=== PATIENT | female | born 1945 | race Caucasian/White ===

== ENCOUNTER 2017-02-01 09:28 | Observation (INO) | payer OTHER, MEDICARE ==
--- NOTE | 2017-02-01 09:01 | PDHPUP ---
History & Physical Update H&P update statement: This history and physical update is based on an assessment of the patient which was completed after admission or registration (within 24 hours), but prior to the surgery/procedure. H&P update: H&P reviewed & patient examined, no change in patient's condition since H&P completed
[2017-02-01] MEDS ORDERED: LIDOCAINE 1% 2 ML INJ ID PRN (10:09)
[2017-02-01] MEDS ORDERED: LR 1,000 ML IV ONE (10:09)
[2017-02-01] MEDS ORDERED: BUPIVACAINE/EPI 0.5% 30 ML SDV ONE (11:11)
[2017-02-01] MEDS ORDERED: MIDAZOLAM 2 MG/2 ML VIAL ONE (11:14)
--- NOTE | 2017-02-01 11:21 | PDANEPAE ---
ANE History of Present Illness Kandi fundoplication ANE Past Medical History - Cardiovascular History Hx Hypertension: Yes Hx Arrhythmias: No Hx Chest Pain: No Hx Coronary Artery / Peripheral Vascular Disease: No Hx CHF / Valvular Disease: No Hx Palpitations: No - Pulmonary History Hx COPD: No Hx Asthma/Reactive Airway Disease: No Hx Recent Upper Respiratory Infection: No Hx Oxygen in Use at Home: No Hx Sleep Apnea: No Sleep Apnea Screening Result - Last Documented: Negative - Neurologic History Hx Cerebrovascular Accident: No Hx Seizures: No Hx Dementia: No - Endocrine History Hx Diabetes: No - Renal History Hx Renal Disorders: No - Liver History Hx Hepatic Disorders: No - Neurological & Psychiatric Hx Hx Neurological and Psychiatric Disorders: No - Cancer History Hx Cancer: No - Congenital Disorder History Hx Congenital Disorders: No - GI History GERD: moderate Hx Gastrointestinal Disorders: No Gastrointestinal History Comment: ACID REFLEX "WITH THIS HIATAL HERNIA" - Chronic Pain History Chronic Pain: No - Surgical History Prior Surgeries: R KNEE SURGERY 2011. VAGINAL PROLAPSE 2009 RX FROM VAGINAL PROLAPSE IN 2007. MENINGIOMA TUMOR 2005. PARTIAL HYSTERECTOMY 1977. TONISLECTOMY 1948 ANE Review of Systems - Exercise capacity METS (RN): 4 METS ANE Patient History - Allergies Allergies/Adverse Reactions: No Known Allergies Allergy (Unverified 01/24/17 17:07) - Home Medications Home Medications: Aspirin [Aspirin 325 mg (*)] 325 mg PO DAILY 01/24/17 [Last Taken 01/30/17] Atorvastatin Calcium [Lipitor 20 mg (*)] 20 mg PO DAILY 01/24/17 [Last Taken ] Levothyroxine [Synthroid 100 mcg (*)] 100 mcg PO DAILY06 01/24/17 [Last Taken ] Liothyronine Sodium [Cytomel 5 mcg (*)] 5 mcg PO DAILY 01/24/17 [Last Taken Unknown] Losartan/Hydrochlorothiazide [Losartan-Hctz 100-25 Mg Tab] 1 each PO DAILY 01/24 [Last Taken 02/01/17 07:30] [place]-3 Fatty Acids [Fish Oil 1000 mg (*)] 1,000 mg PO DAILY 01/24/17 [Last Taken 01/31/17] Omeprazole [Prilosec 20 mg] 20 mg PO BID 01/24/17 [Last Taken 02/01/17 07:30] - NPO status NPO Since - Liquids (Date): 02/01/17 NPO Since - Liquids (Time): 07:30 NPO Since - Solids (Date): 01/31/17 NPO Since - Solids (Time): 17:45 - Smoking Hx Smoking Status: Never smoked - Family Anes Hx Family Hx Anesthesia Complications: N/A ANE Labs/Vital Signs - Vital Signs Blood Pressure: 147/84 Heart Rate: 76 Respiratory Rate: 16 O2 Sat (%): 97 Height: 167.64 cm Weight: 83.915 kg ANE Physical Exam - Airway Neck exam: FROM Mallampati Score: Class 2 Mouth exam: normal dental/mouth exam - Pulmonary Pulmonary: no respiratory distress, no rales or rhonchi - Cardiovascular Cardiovascular: regular rate and rhythym, no murmur, rub, or gallop - ASA Status ASA Status: II ANE Anesthesia Plan Anesthesia Plan: general endotracheal anesthesia
[2017-02-01] MEDS ORDERED: MIDAZOLAM 2 MG/2 ML VIAL IVP ONE (11:22)
[2017-02-01 11:28] LABS: CALCIUM 10.9 mg/dL (8.5-10.4); CREATININE 1.1 mg/dL (0.6-1.0)
[2017-02-01 11:40] LABS: PTH INTACT NO MINERALS 140.8 pg/ml (10.8-79.4)
[2017-02-01] MEDS ORDERED: PROPOFOL/EMULSION 500 MG/50 ML BOTTLE IV ONE (12:02)
[2017-02-01] MEDS ORDERED: fentaNYL 100 MCG/2 ML INJ ONE ×3 (12:02→14:46)
[2017-02-01] MEDS ORDERED: LIDOCAINE 2% 5 ML SDV ONE (12:22)
[2017-02-01] MEDS ORDERED: ROCURONIUM 50 MG/5 ML VIAL ONE (12:22)
[2017-02-01] MEDS ORDERED: GLYCOPYRROLATE 0.2 MG/1 ML VIAL ONE (13:02)
[2017-02-01] MEDS ORDERED: ONDANSETRON 4 MG/2 ML VIAL ONE ×2 (13:03→13:13)
[2017-02-01] MEDS ORDERED: DEXAMETHASONE 4 MG/ML VIAL ONE (13:03)
[2017-02-01] MEDS ORDERED: METOPROLOL TARTRATE 5 MG/5 ML INJ ONE (13:17)
[2017-02-01] MEDS ORDERED: HYDROmorphONE/DILAUDID 2 MG/ML INJ ONE (13:55)
[2017-02-01] MEDS ORDERED: SUGAMMADEX SODIUM 200 MG/2 ML VIAL IVP ONE (14:02)
[2017-02-01] MEDS ORDERED: KETOROLAC 30 MG/1 ML SDV ONE (14:13)
[2017-02-01] MEDS ORDERED: HYDROmorphONE/DILAUDID 1 MG/ML SYR IVP PRN ×2 (14:23→15:00)
[2017-02-01] MEDS ORDERED: NALOXONE HCL 0.4 MG/ML INJ IVP PRN (14:23)
[2017-02-01] MEDS ORDERED: LABETALOL HCL 50 MG/10 ML SYR IVP PRN (14:23)
[2017-02-01] MEDS ORDERED: ONDANSETRON 4 MG/2 ML VIAL IVP PRN ×2 (14:23→15:00)
[2017-02-01] MEDS: fentaNYL 100 MCG/2 ML INJ IVP PRN ×2 (14:47→14:54)
[2017-02-01] MEDS ORDERED: ZOLPIDEM TARTRATE 5 MG TAB PO PRN (15:00)
--- NOTE | 2017-02-01 15:50 | POSTOPPROG ---
Post Op Note Date of Operation: 02/01/17 Surgeon: Samson Newman Choir Teacher: Sugey Ramirez Anesthesiologist: Perri Wright Anesthesia: GET(General Endotracheal) Pre-op Diagnosis: Paraesophaeal Hernia Post-op Diagnosis: Same Procedure: Lap PEH Findings: Normal GEJ - large hernia sac with incarcerated stomach Inf/Abcess present in the surg proc area at time of surgery?: No EBL: Minimal Complications: no immediate
[2017-02-01] MEDS: ENOXAPARIN 40 MG/0.4 ML SYR SC SCH (16:06)
[2017-02-01] MEDS: HYDROCODONE/APAP 5/325 TAB PO PRN ×2 (16:06→23:40)
[2017-02-01] MEDS: KETOROLAC 15 MG/1 ML SDV IVP SCH ×2 (18:17→23:40)
[2017-02-01] MEDS: METOCLOPRAMIDE 10 MG/2 ML VIAL IVP SCH ×2 (18:17→23:40)
--- NOTE | 2017-02-01 18:20 | SOAPPROG ---
SOAP Progress Note Assessment/Plan: Assessment: no postop complaints. min pain. no cp or sob. doing well. brenton clears - adv to full liquids. restart eliquis tomorrow. lovenox given today. ambulate. anticipate dc in am. outpt workup for hyperparathyroidism to be entertained. Plan: 02/01/17 18:18 Objective: Vital Signs Temp Pulse Resp BP Pulse Ox 36.8 C 70 14 126/75 H 97 02/01/17 18:07 02/01/17 18:07 02/01/17 18:07 02/01/17 18:07 02/01/17 18:07 01/31/17 02/01/17 02/02/17 05:59 05:59 05:59 Intake Total 225 Balance 225 ICD10 Worksheet Patient Problems: Problems Problem Status Onset Paraesophageal hernia Acute - ICD10 Problem Qualifiers (1) Paraesophageal hernia
[2017-02-01] MEDS: PANTOPRAZOLE SODIUM 40 MG TAB PO SCH (20:13)
[2017-02-01] MEDS ORDERED: NON-FORMULARY NEW DRUG (Omeprazole [Prilosec 20 Mg] 20 MG) PO SCH (21:00)
[2017-02-02 03:06] VITALS: RESP 16
[2017-02-02] MEDS: METOCLOPRAMIDE 10 MG/2 ML VIAL IVP SCH (05:57)
[2017-02-02] MEDS: KETOROLAC 15 MG/1 ML SDV IVP SCH (05:57)
[2017-02-02] MEDS ORDERED: LEVOTHYROXINE 100 MCG TAB PO SCH (06:00)
[2017-02-02 07:11] VITALS: BP 146/68; PULSE 69; TEMP 98.3; O2SAT 95
[2017-02-02] MEDS: PANTOPRAZOLE SODIUM 40 MG TAB PO SCH (08:18)
[2017-02-02] MEDS: ENOXAPARIN 40 MG/0.4 ML SYR SC SCH (08:21)
[2017-02-02] MEDS ORDERED: OMEGA-3 FATTY ACIDS 1,000 MG CAP PO SCH (09:00)
[2017-02-02] MEDS ORDERED: ASPIRIN 325 MG TAB PO SCH (09:00)
[2017-02-02] MEDS ORDERED: ATORVASTATIN CALCIUM 20 MG TAB PO SCH (09:00)
[2017-02-02] MEDS ORDERED: LIOTHYRONINE SODIUM 5 MCG TAB PO SCH (09:00)
[2017-02-02] MEDS ORDERED: LOSARTAN/HCTZ 50/12.5 1 TAB PO SCH (09:00)
[2017-02-02] MEDS ORDERED: NON-FORMULARY NEW DRUG (Losartan/Hydrochlorothiazide [Losartan-Hctz 100-25 Mg Tab] 1 EACH) PO SCH (09:00)
--- NOTE | 2017-02-02 10:19 | GOP ---
[f rep st] OPERATIVE REPORT DATE OF OPERATION: 02/01/2017 SURGEON: Samson Newman MD DIRECTOR HEART: Sugey Parsons PA-C ANESTHESIA: General. ANESTHESIOLOGIST: Dr. Wright PREOPERATIVE DIAGNOSIS: Symptomatic paraesophageal hernia. POSTOPERATIVE DIAGNOSIS: Symptomatic paraesophageal hernia. PROCEDURE PERFORMED: Laparoscopic paraesophageal hernia repair. FINDINGS: INDICATIONS: 71-year-old female with a symptomatic paraesophageal hernia. She is undergoing surgic al repair at this time. Risks and benefits were explained of bleeding, infection, hernia recurrence , bowel injury, vagus nerve injury, dysphagia, recurrence, gas bloat syndrome, recurrent pulmonary e mbolism as well as others. All questions were answered. She desires to proceed. A surgical instrument repair specialist is standard, necessary and customary for the safe performance of this procedure . DESCRIPTION OF PROCEDURE: After general anesthesia was induced, the abdomen was preinjected with 0. 5% Marcaine with Epinephrine. A supraumbilical Veress needle was placed followed by a 5 mm trocar. 4 additional 5 mm ports were placed across the upper abdomen. A liver retractor was applied. The diaphragmatic defect was noted to be moderate size. The complete fundus and body of the stomach wer e noted to be up within the mediastinum along with greater omentum and the leading edge of the splee n. The visceral contents were reduced back towards the abdominal cavity. Using the Harmonic scalpe l, the sac was dissected anteriorly allowing for exposure of both right and left evie of the diaphra gm. The lesser omentum was divided as were a couple of the proximal short gastric vessels to allow for the stomach to be maintained back within the abdominal cavity. The gastroesophageal junction wa s noted to be in anatomic position with an approximately 4 cm intraabdominal esophageal segment. A retroesophageal tunnel was created. The crural defect was reapproximated with multiple interrupted Tevdek sutures. The fundus of the stomach was easily passed posterior to the esophagus allowing for a 360-degree wrap. This was completed incorporating the esophagus in the closure with the last sut ure pexing the wrap to the right evie of the diaphragm. The wrap was completely floppy in nature, a llowing for the passage of laparoscopic instruments without difficulty, and satisfactory hemostasis was assured. The spleen was confirmed hemostatic. The retractor was removed. The trocars were rem jarred under direct visualization. The wounds were closed with Monocryls and Dermabond. The patient was taken to recovery and recovered uneventfully. /[id number]/MODL
--- NOTE | 2017-02-02 17:54 | GDS ---
[f rep st] DISCHARGE SUMMARY REASON FOR ADMISSION: Symptomatic paraesophageal hernia. HOSPITAL COURSE: A 71-year-old female, admitted with a symptomatic paraesophageal hernia. She unde rwent an uncomplicated surgery, underwent a laparoscopic repair. She had an unremarkable postoperat kylah course. She was discharged home the following morning in good condition, tolerating a soft diet with minimal pain, adequately controlled with oral analgesics. She will be seen in followup with Amanda Newman in 1-2 weeks. She was to resume all pre-hospital medications. She will remain on postoperat kylah Eliquis and her proton pump inhibitor for an additional week. Further workup for hypercalcemia will be undertaken at the time of her followup care. Activity and discharge instructions explained to the patient and her prior to leaving. /[id number]/MODL
--- NOTE | 2017-02-02 18:05 | POSTANESTH ---
Post Anesthetic Evaluation Cardiovascular Status: Normal, Stable Respiratory Status: Normal, Stable Level of Consciousness/Mental Status: Can Participate in Eval Pain Control: Adequate, Prn Tx Ordered Nausea/Vomiting Control: Adequate, Prn Tx Ordered Complications Possibly Related to Anesthesia: None Noted (Patient discharged today. No anesthesia problems noted.)
== END 2017-02-02 09:09 | disposition home or self-care (01) ==
LOC: F3E 09:28
PROVIDERS: ADMIT Surgery; ATTEND Surgery
PROC: 0DV44ZZ Restriction of Esophagogastric Junction, Percutaneous Endoscopic Approach (ICD-10-PCS; principal; 2017-02-01 11:30)
DX: K44.0 Diaphragmatic hernia with obstruction, without gangrene (principal); E83.52 Hypercalcemia; K21.9 Gastro-esophageal reflux disease without esophagitis
CPT/HCPCS: 43281; J1100; J1170; J1650; J1885; J2250; J2405; J2704; J2765; J3010

== ENCOUNTER → 2017-03-28 | Outpatient (CLI) | payer OTHER, MEDICARE | LOC: FIMAGING 08:44 | PROVIDERS: ATTEND Surgery | DX: K44.9 Diaphragmatic hernia without obstruction or gangrene (principal); E21.0 Primary hyperparathyroidism ==